=== PATIENT | male | born 1955 | race Caucasian/White ===

== ENCOUNTER 2018-11-23 06:58 | Day surgery (SDC) | payer BC ==
[2018-11-22 10:35] VITALS: BMI 22.9
[2018-11-23] MEDS ORDERED: EPINEPHrine 1 MG/ML AMP ONE (09:01)
[2018-11-23] MEDS ORDERED: Fentanyl 100 MCG/2 ML VIAL ONE (09:05)
[2018-11-23] MEDS ORDERED: Midazolam HCl 2 mg/2 ml Vial ONE (09:05)
[2018-11-23] MEDS ORDERED: Hydrocodone-Acetamin 15 ML UDCUP ONE (11:14)
[2018-11-23] MEDS ORDERED: Dexamethasone 20 MG/5 ML VIAL ONE (16:09)
[2018-11-23] MEDS ORDERED: PROPOFOL 200 MG/20 ML VIAL ONE (16:09)
[2018-11-23] MEDS ORDERED: Ondansetron PF 4 MG/2 ML Vial ONE (16:09)
[2018-11-23] MEDS ORDERED: Lidocaine 1% PF 5 ML VIAL ONE (16:09)
--- NOTE | 2018-11-23 21:33 | OP ---
DATE OF PROCEDURE: 11/23/2018 PREOPERATIVE DIAGNOSES: 1. Right true vocal cord mass. 2. Dysphonia. POSTOPERATIVE DIAGNOSES: 1. Right true vocal cord mass. 2. Dysphonia. PROCEDURES: Microsuspension direct laryngoscopy with biopsy of right true vocal cord. ESTIMATED BLOOD LOSS: Less than 5 mL. COMPLICATIONS: None. ANESTHESIA: GETA. PROCEDURE IN DETAIL: The patient was taken to the operating room and placed supine on the table. General endotracheal anesthesia was obtained with a 6.0 endotracheal tube. The tube was secured in the left lower lip. A shoulder roll was placed and the head of bed was turned 90 degrees. A protective tooth guard was placed in the upper teeth and a Dedo laryngoscope was used to examine the oral cavity and oropharynx, which were clear. The pharyngeal mooney, pyriform sinuses, vallecula, and epiglottis were all within normal limits. The patient was then placed in suspension, exposing the laryngeal inlet and the vocal cords. On the right side from the midportion of the right true vocal cord extending almost to the anterior commissure, there was an exophytic white mass. This mass was biopsied using straight and upbiting cup forceps. Following this, the remainder of the mass was removed using the laryngeal microdebrider protecting the true vocal cord mucosa. Following this, a epinephrine-soaked pledget was placed onto the biopsy area and was allowed to sit for 1 minute. The patient tolerated the procedure well. The pledget was removed. Job ID: [id number]
--- NOTE | 2018-11-25 20:47 | EKG ---
Test Reason : PREOP Blood Pressure : / mmHG Vent. Rate : 058 BPM Atrial Rate : 058 BPM P-R Int : 180 ms QRS Dur : 088 ms QT Int : 404 ms P-R-T Axes : 031 050 065 degrees QTc Int : 396 ms Sinus bradycardia Otherwise normal ECG Confirmed by Natalya EVANS ([id number]) on 11/25/2018 8:47:08 PM Referred By: RYAN Confirmed By:Natalya EVANS
== END 2018-11-23 11:34 | disposition home or self-care (01) ==
LOC: SDC 06:58
PROVIDERS: ATTEND Otolaryngology Plastic Surgery within the Head & Neck
PROC: 0CBT8ZZ Excision of Right Vocal Cord, Via Natural or Artificial Opening Endoscopic (ICD-10-PCS; principal; 2018-11-23)
DX: C32.0 Malignant neoplasm of glottis (principal); Z87.891 Personal history of nicotine dependence; Z79.82 Long term (current) use of aspirin; Z79.899 Other long term (current) drug therapy
CPT/HCPCS: 88305; 93005; 93010; J0171; J1100; J2001; J2250; J2405; J2704; J3010

== ENCOUNTER 2022-03-13 17:19 | Outpatient (CLI) | payer OTHER ==
[2022-03-13 17:58] LABS: Hemoglobin 14.6 g/dL (13.5-17.5)
[2022-03-13 18:09] LABS: Anion Gap 12 mmol/L (10-20); BUN (Urea Nitrogen) 15 mg/dL (8.4-25.7); Calc. Creatinine Clearance 0 mL/min (70-130); Calcium 9.6 mg/dL (7.8-10.44); Carbon Dioxide 26 mmol/L (23-31); Chloride 104 mmol/L (98-107); Glucose 105 mg/dL (80-115); Potassium 3.9 mmol/L (3.5-5.1); Sodium 138 mmol/L (136-145)
[2022-03-14 12:40] LABS: SARS-CoV-2 PCR by NAA Not Detected (NotDetected)
== END 2022-03-13 17:20 | disposition home or self-care (01) ==
LOC: LABBT 17:19
PROVIDERS: ATTEND Otolaryngology Plastic Surgery within the Head & Neck
DX: Z01.818 Encounter for other preprocedural examination (principal); J01.90 Acute sinusitis, unspecified; J34.3 Hypertrophy of nasal turbinates; K21.9 Gastro-esophageal reflux disease without esophagitis; R49.0 Dysphonia; Z85.21 Personal history of malignant neoplasm of larynx; Z85.89 Personal history of malignant neoplasm of other organs and systems; Z87.891 Personal history of nicotine dependence; Z20.822 Contact with and (suspected) exposure to COVID-19
CPT/HCPCS: 80048; 85014; 85018; 93005; 93010; U0003; U0005

== ENCOUNTER 2022-03-18 07:57 | Day surgery (SDC) | payer OTHER ==
[2022-03-16 13:32] VITALS: BMI 23.6
[2022-03-18] MEDS ORDERED: EPINEPHrine 1 MG/ML AMP ONE (10:35)
[2022-03-18] MEDS ORDERED: Lidocaine 1% w/Epinephrine 1:100K 20 ML VIAL ONE (10:35)
[2022-03-18] MEDS ORDERED: SUGAMMADEX SODIUM 200 MG/2 ML VIAL ONE (10:36)
[2022-03-18] MEDS ORDERED: fentaNYL Citrate/PF 100 MCG/2 ML SYRINGE ONE (10:36)
[2022-03-18] MEDS ORDERED: Propofol 1,000 MG/100 ML VIAL IV ONE (10:36)
[2022-03-18] MEDS ORDERED: Rocuronium Bromide 10 MG/ML (10ML VIAL) ONE (10:42)
[2022-03-18] MEDS ORDERED: PROPOFOL 200 MG/20 ML VIAL ONE (10:42)
[2022-03-18] MEDS ORDERED: Dexamethasone 20 MG/5 ML VIAL ONE (10:42)
[2022-03-18] MEDS ORDERED: Ondansetron PF 4 MG/2 ML Vial ONE (10:42)
== END 2022-03-18 13:08 | disposition home or self-care (01) ==
LOC: SDC 07:57
PROVIDERS: ATTEND Otolaryngology Plastic Surgery within the Head & Neck
PROC: 0CBV8ZX Excision of Left Vocal Cord, Via Natural or Artificial Opening Endoscopic, Diagnostic (ICD-10-PCS; principal; 2022-03-18)
DX: J38.3 Other diseases of vocal cords (principal); I10 Essential (primary) hypertension; J30.9 Allergic rhinitis, unspecified; J34.3 Hypertrophy of nasal turbinates; K21.9 Gastro-esophageal reflux disease without esophagitis; Z85.21 Personal history of malignant neoplasm of larynx; Z87.891 Personal history of nicotine dependence; Z79.899 Other long term (current) drug therapy
CPT/HCPCS: 88305; 88321; J0171; J1100; J2405; J2704